=== PATIENT | female | born 1955 | race Caucasian/White ===

== ENCOUNTER → 2021-08-04 08:53 | Outpatient (CLI) | payer OTHER, SELFPAY ==
--- NOTE | 2021-08-04 09:03 | MRI_ITS ---
STUDY: MRI BRAIN WITHOUT CONTRAST REASON FOR EXAM: Female, 66 years old. UNSTEADY, DIZZY, n/t legs, feet and hands TECHNIQUE: Standardized multiplanar fat and water weighted pulse sequences were obtained. COMPARISON: None. FINDINGS: Normal size of the ventricles and extra-axial spaces for the patient''s age. Normal white matter tracts of the supratentorial brain. There is no evidence for recent intracranial ischemia or other cause of cytotoxic edema on diffusion weighted imaging (DWI). Normal T2* images of the brain without demonstrated susceptibility artifact. There is no demonstrated hemosiderin stain. Normal bilateral basal ganglia. Normal thalami. There is no extra-axial fluid accumulation. Normal flow voids within the major intracranial circulation suggesting patency by spin echo criteria. Normal sella turcica, pituitary gland, infundibular stalk, optic chiasm and hypothalamus. Normal tectal plate and pineal gland. Normal midbrain, bill and medulla. Normal cerebellum. Normal basal cisterns. Normal bilateral temporal bones. Normal bilateral internal auditory canals. There are bilateral ocular lens implants with otherwise normal intraorbital contents. Normal visualized paranasal sinuses. Normal calvarium and skull base. Normal visualized soft tissue structures. Normal visualized upper cervical spine. MRI/Brain without Contrast IMPRESSION: Normal unenhanced MRI of the brain. Electronically Signed: Tomas Walden MD at 12:06 EST Tel , Service support ,
--- NOTE | 2021-08-04 09:13 | RAD_ITS ---
STUDY: X-RAY - CERVICAL SPINE REASON FOR EXAM: Female, 66 years old. Dizziness and unsteadiness. TECHNIQUE: 7 view(s) of the cervical spine were obtained including flexion and extension views.. COMPARISON: None FINDINGS: Normal anterior atlantoaxial articulation. Normal odontoid process. Normal cervical lordosis. Normal vertebral bodies and endplates. Narrowing of C5-C6 disc space. Minimal retrolisthesis of C5 over C6 on the extension view not seen on the flexion or neutral views. Narrowing of C4-C5 disc space with minimal retrolisthesis of C4 over C5 again not seen on the flexion or neutral views. Posterior lateral degenerative spurs at the level of C4-C5 with narrowing of the left neural foramina. The soft tissue structures are unremarkable. RAD/Cerv Spine Obl/Flex/Ext Comp IMPRESSION: Degenerative changes of the cervical spine as described above. MRI of the cervical spine is recommended. Electronically Signed: Nawaf Ashby, at 11:05 EST Tel , Service support ,
== END ==
PROVIDERS: PCP Internal Medicine; Visit Provider Internal Medicine
DX: R42 Dizziness and giddiness (principal); R25.8 Other abnormal involuntary movements; M54.2 Cervicalgia
CPT/HCPCS: 70551; 72052

== ENCOUNTER 2021-09-25 16:17 | Outpatient (CLI) | payer SELFPAY ==
--- NOTE | 2021-09-25 16:31 | MRI_ITS ---
STUDY: MRI THORACIC SPINE WITH AND WITHOUT CONTRAST REASON FOR EXAM: Female, 66 years old. URINE INCONTINENT, NUMBNESS/TINGLING UNSTEADY GAIT; R/O MS TECHNIQUE: IV 11ml Dotarem was administered for the contrast portion of the examination. COMPARISON: None. FINDINGS: Normal kyphosis of the thoracic spine. There is no substantial scoliosis. No evidence for acute fracture or other significant bony pathology. Disc space heights are well-maintained although there is multilevel disc degeneration but no focal disc protrusion. . Normal central canal and intervertebral neural foramina at the corresponding levels. Normal visualized thoracic cord. Normal conus medullaris that terminates at T12-L1 The soft tissue structures are unremarkable. There is no enhancing abnormality. MRI/Spine Thoracic W/WO Contrast IMPRESSION: No acute fracture or other significant bony pathology Degenerative disc disease without disc protrusion spinal stenosis or cord compression No abnormal enhancement following contrast administration Electronically Signed: Tony High MD at 21:39 EST ,
--- NOTE | 2021-09-25 16:31 | MRI_ITS ---
STUDY: MRI CERVICAL SPINE WITH AND WITHOUT CONTRAST REASON FOR EXAM: Female, 66 years old. INCONTINENT OF URINE, NUMBNESS/TINGLING, UNSTEADY GAIT TECHNIQUE: Standardized fat and water weighted pulse sequences were obtained in the sagittal and axial following administration of IV 11ml Dotarem. COMPARISON: None FINDINGS: Normal foramen magnum and brainstem-cervical cord junction. Normal craniovertebral junction. Normal anterior atlantoaxial articulation. Normal odontoid process. Normal cervical lordosis. Normal vertebral bodies and posterior osseous elements. C2-3: Normal endplates. Normal disc height, signal and morphology. Normal central canal and intervertebral neural foramina. C3-4: Normal endplates. Normal disc height, signal and morphology. Normal central canal and intervertebral neural foramina. C4-5: Mild endplate spurring. Normal disc height, signal and morphology. Normal central canal. Severe left neuroforaminal stenosis secondary to bony hypertrophy. C5-6: Mild endplate spurring. The. Normal disc height, signal and minor bulging disc osteophyte complex.. Normal central canal. Mild left neuroforaminal stenosis secondary to bony hypertrophy. C6-7: Normal endplates. Normal disc height, signal and tiny central disc protrusion. Normal central canal and intervertebral neural foramina. C7-T1: Normal endplates. Normal disc height, signal and morphology. Normal central canal and intervertebral neural foramina. Normal cervical cord. No enhancing lesions following contrast administration Normal visualized soft tissue structures. MRI/Spine Cervical W/WO Contrast IMPRESSION: No evidence for acute fracture or other significant bony pathology. Severe left neuroforaminal stenosis at C4-5 secondary to bony hypertrophy. Mild left neuroforaminal stenosis at C5-6 secondary to minor bulging disc osteophyte complex and bony hypertrophy Tiny central disc protrusion at C6-7 without spinal stenosis No cord compression or cord lesions. No enhancing lesions Electronically Signed: Tony High MD at 21:37 EST ,
--- NOTE | 2021-09-25 16:31 | MRI_ITS ---
STUDY: MRI LUMBAR SPINE WITH AND WITHOUT CONTRAST REASON FOR EXAM: Female, 66 years old. INCONTINENT OF URINE , UNSTEADY GAIT, NUMBNESS/TINGLING; R/O MS TECHNIQUE: Standardized fat and water weighted pulse sequences were obtained in the sagittal and axial planes. IV yes yes was administered for the contrast portion of the examination. COMPARISON: None FINDINGS: T12-L1: Normal endplates. Normal disc height, hydration and morphology. Normal bilateral facet joints. Normal central canal and bilateral lateral recesses. Normal bilateral intervertebral neural foramina. Normal lumbar lordosis. There is no substantial scoliosis. Normal conus medullaris that terminates at T12-L1 L1-2: Normal endplates. Normal disc height, hydration and morphology. Normal bilateral facet joints. Normal central canal and bilateral lateral recesses. Normal bilateral intervertebral neural foramina. L2-3: Normal endplates. Normal disc height, desiccation and minimal annular bulge. Normal bilateral facet joints. Normal central canal and bilateral lateral recesses. Normal bilateral intervertebral neural foramina. L3-4: Normal endplates. Normal disc height, desiccation and small right foraminal disc protrusion. Mild facet arthropathy.. Normal central canal and bilateral lateral recesses. Moderate to severe right neuroforaminal stenosis L4-5: Normal endplates. Normal disc height, desiccation and minor annular bulge.. Mild facet arthropathy.. Normal central canal and bilateral lateral recesses. Moderate bilateral neuroforaminal stenosis L5-S1: Normal endplates. Normal disc height, hydration and morphology. Normal bilateral facet joints. Normal central canal and bilateral lateral recesses. Normal bilateral intervertebral neural foramina. Normal visualized sacral ala. Normal visualized paraspinous soft tissue structures. No enhancing lesions following contrast administration MRI/Spine Lumbar W/WO Contrast IMPRESSION: No evidence for acute fracture or other significant bony pathology.. Spinal stenosis at L3-4 on the right secondary to right foraminal disc protrusion and facet arthropathy. Spinal stenosis at L4-5 secondary to minor annular bulge and facet arthropathy. No enhancing lesions following contrast administration Electronically Signed: Tony High MD at 21:49 EST ,
[2021-09-25 16:40] LABS: CREATININE FINGERSTICK 0.6 mg/dL (0.55-1.02); EGFR FINGERSTICK > 60.0000 mL/min (>60)
== END 2021-09-25 23:59 | disposition short-term general hospital (02) ==
PROVIDERS: PCP Internal Medicine; Visit Provider Internal Medicine
DX: R20.0 Anesthesia of skin (principal); R32 Unspecified urinary incontinence; R26.81 Unsteadiness on feet
CPT/HCPCS: 72156; 72157; 72158; A9575